=== PATIENT | male | born 1975 | race African-American/Black ===

== ENCOUNTER 2018-04-26 14:43 | Outpatient (CLI) | payer OTHER ==
--- NOTE | 2018-04-26 19:41 | MRI Report ---
Reason: CERVICALGIA Procedure Date: 04/26/2018 Accession Number: [id number] / [id number] Procedure: MRI - Cervical Spine W/O CPT Code: FULL RESULT: EXAM: MRI CERVICAL SPINE WITHOUT CONTRAST EXAM DATE: 04/26/2018 04:32 PM. CLINICAL HISTORY: 42-year-old male. CERVICALGIA. COMPARISONS: None. TECHNIQUE: Multiplanar, multisequence T1-weighted and fluid-sensitive sequences of the cervical spine without contrast. Other: None. FINDINGS: Postsurgical: The patient is noted to be status post C5-C7 ACDF. Neurologic Structures: The visualized posterior fossa structures are unremarkable. No signal abnormality in the visualized spinal cord. Alignment: Grade 1 retrolisthesis C4 on C5 measuring 2 mm. Bone Marrow: No gross fractures or bone lesions. Mild Modic type I degenerative endplate is at C4-C5 level with endplate edema. 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 Interspace Levels/Facets: C1-C2: Unremarkable. C2-C3: No significant superimposed central canal or foraminal narrowing. C3-C4: Small posterior disk osteophyte complex. Mild to moderate central canal narrowing. No foraminal narrowing. C4-C5: Mild disk height loss and desiccation. Moderate posterior disk osteophyte complex, asymmetric to the left, with superimposed left subarticular/foraminal protrusion measuring 3 mm. Moderate central canal narrowing. Moderate left and mild to moderate right foraminal narrowing. C5-C6: Postsurgical level. Mild posterior endplate spurring. There is a superimposed right foraminal osteophyte measuring 3 mm. Mild to moderate bilateral uncovertebral spurring. Mild to moderate central canal narrowing. Moderate right and mild to moderate left foraminal narrowing. C6-C7: Postsurgical level. Moderate posterior endplate spurring. Moderate left and mild right uncovertebral spurring. Mild central canal narrowing. Moderate left and mild right foraminal narrowing. C7-T1: Mild diffuse disk bulge. Mild central canal narrowing. Mild bilateral foraminal narrowing. Musculature: Normal. No edema or fatty atrophy. Other: The paravertebral and prevertebral soft tissues are normal. IMPRESSION: 1. 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 The patient is status post C5-C7 ACDF. No evidence of acute fracture or malalignment. No cord signal abnormality. 2. Mild Modic type I degenerative endplate is at C4-C5 level with endplate edema. Modic type I changes may represent a source of pain. 3. C3-C4: Mild to moderate central canal narrowing. No foraminal narrowing. 4. C4-C5: Moderate central canal narrowing. Moderate left and mild to moderate right foraminal narrowing. Recommend correlation for left C5 radicular symptoms. 5. C5-C6: Mild to moderate central canal narrowing. Moderate right and mild to moderate left foraminal narrowing. Recommend correlation for right C6 radicular symptoms. 6. C6-C7: Mild central canal narrowing. Moderate left and mild right foraminal narrowing. Recommend correlation for left C7 radicular symptoms. 7. C7-T1: Mild central canal narrowing. Mild bilateral foraminal narrowing. RADIA
== END 2018-04-26 14:44 | disposition home or self-care (01) ==
LOC: DI 14:43
PROVIDERS: ATTEND General Practice
DX: M47.812 Spondylosis without myelopathy or radiculopathy, cervical region (principal); M48.02 Spinal stenosis, cervical region; M25.78 Osteophyte, vertebrae; M50.23 Other cervical disc displacement, cervicothoracic region
CPT/HCPCS: 72141